=== PATIENT | male | born 1980 | race Caucasian/White ===

== ENCOUNTER 2017-09-12 23:10 | Emergency (ER) | payer OTHER ==
[2017-09-13] MEDS: ACETAMINOPHEN 325 MG TAB PO (01:47)
[2017-09-13] MEDS: KETOROLAC 60 MG INJ IM (01:49)
== END 2017-09-13 02:25 | disposition home or self-care (01) ==
LOC: FTE 23:10
DX: J02.9 Acute pharyngitis, unspecified (principal); Z87.891 Personal history of nicotine dependence
CPT/HCPCS: 96372; 99284-25